=== PATIENT | female | born 1985 | race Asian ===

== ENCOUNTER 2017-05-12 00:40 | Inpatient (IN) | payer SELFPAY ==
[~2017-05-12] VITALS: Ht 160 cm; Wt 65.8 kg
[2017-05-12] MEDS ORDERED: NALBUPHINE HYDROCHLORIDE 10 MG/ML VIAL IVP PRN (01:30)
[2017-05-12] MEDS ORDERED: PROMETHAZINE 25 MG/ML VIAL IVP PRN (01:30)
[2017-05-12] MEDS ORDERED: OXYTOCIN 10 UNITS/ML VIAL IM ONE (01:30)
[2017-05-12] MEDS ORDERED: OXYTOCIN 20 UNITS/LR PREMIX 1,000 ML IV SCH (01:30)
[2017-05-12] MEDS: LACTATED RINGERS 1,000 ML IV SCH ×2 (01:51→05:01)
[2017-05-12] MEDS ORDERED: OXYTOCIN 20 UNITS/LR PREMIX 1,000 ML IV ONE ×2 (02:10→18:08)
[2017-05-12 02:27] LABS: BASOPHILS % (AUTO) 0.4 % (0.0-2.0); EOSINOPHILS # (AUTO) 0.3 K/uL (0-0.4); EOSINOPHILS % (AUTO) 3.2 % (0.0-4.0); HEMATOCRIT 38.9 % (36-48); HEMOGLOBIN 12.9 g/dL (12.0-16.0); LYMPHOCYTES # (AUTO) 1.7 K/uL (2.5-16.5); LYMPHOCYTES % (AUTO) 19.3 % (20.5-51.1); MEAN CORPUSCULAR HEMOGLOBIN 29 pg (27-31); MEAN CORPUSCULAR HGB CONC 33 g/dL (33-37); MEAN CORPUSCULAR VOLUME 88 fL (80-94); MONOCYTES # (AUTO) 0.7 K/uL (0.8-1.0); MONOCYTES % (AUTO) 8.2 % (1.7-9.3); NEUTROPHILS % (AUTO) 68.9 % (42.2-75.2); PLATELET COUNT (AUTO) 248 K/uL (140-450); RED CELL DISTRIBUTION WIDTH 13.6 % (11.6-13.7); WHITE BLOOD COUNT (AUTO) 8.7 K/uL (4.8-10.8)
[2017-05-12 03:31] VITALS: BP 122/82
[2017-05-12 03:34] LABS: HIV RAPID SCREEN NON-REACTIVE (NON REACTIV)
[2017-05-12] MEDS ORDERED: PREN-546 PO (03:35)
[2017-05-12 04:23] LABS: APPEARANCE,URINE SL CLOUDY (CLEAR); BILIRUBIN,URINE NEGATIVE (NEGATIVE); BLOOD, URINE NEGATIVE (NEGATIVE); COLOR,URINE YELLOW (YELLOW); LEUKOCYTE ESTERASE ,URINE NEGATIVE (NEGATIVE); NITRITE, URINE NEGATIVE (NEGATIVE); PROTEIN,URINE TRACE (NEGATIVE); UGLUCOSE NEGATIVE (NEGATIVE); UROBILINOGEN,URINE 0.2 EU/dL (0.2 - 1)
[2017-05-12 05:06] LABS: BACTERIA,URINE FEW /HPF (None Seen); RBC,URINE 0-5 (RARE) /HPF (0-5); WBC,URINE 0-5 (RARE) /HPF (0-5)
[2017-05-12] MEDS ORDERED: ROPIVACAINE 0.2%/NS PREMIX 250 ML EPI ONE (05:38)
--- NOTE | 2017-05-12 09:03 | NUR ---
PATIENT HAS BEEN SCREENED AND CATEGORIZED LOW NUTRITION RISK. PATIENT WILL BE SEEN WITHIN 7 DAYS OF ADMISSION. 05/18/[address]
[2017-05-12] MEDS ORDERED: OXYTOCIN 10 UNITS/ML VIAL ONE ×3 (09:27→17:19)
[2017-05-12 11:49] LABS: RAPID PLASMA REAGIN NON-REACTIVE (Non Reactiv)
[2017-05-12] MEDS ORDERED: TRIAMCINOLONE 10 MG/ML 5ML VIAL ONE (17:11)
[2017-05-12] MEDS ORDERED: LIDOCAINE 2% 100 MG/5 ML SYR IVP ONE (17:19)
[2017-05-12] MEDS ORDERED: ONDANSETRON 4 MG/2 ML VIAL ONE ×2 (17:19→18:08)
[2017-05-12] MEDS ORDERED: ePHEDrine 50 MG/ML VIAL ONE (17:19)
[2017-05-12] MEDS ORDERED: ceFAZolin 1,000 MG VIAL IVP ONE (17:30)
[2017-05-12] MEDS ORDERED: MORPHINE PRES FREE 10 MG/10 ML AMP IV ONE (17:33)
[2017-05-12] MEDS ORDERED: SODIUM BICARBONATE 8.4% PFS 50 MEQ/50 ML SYR IVP ONE (17:33)
[2017-05-12] MEDS ORDERED: LIDOCAINE/EPI MPF 2%1:200000 10 ML VIAL INJ ONE ×2 (17:34)
[2017-05-12] MEDS ORDERED: diphenhydrAMINE 50 MG/ML VIAL ONE (18:08)
[2017-05-12] MEDS ORDERED: ONDANSETRON 4 MG/2 ML VIAL IVP PRN ×2 (18:15→22:00)
[2017-05-12] MEDS ORDERED: NALOXONE 0.4 MG/ML VIAL IVP PRN ×3 (18:15)
[2017-05-12] MEDS ORDERED: diphenhydrAMINE 50 MG/ML VIAL IVP PRN (18:15)
[2017-05-12] MEDS ORDERED: NALBUPHINE 10 MG/ML AMP IVP PRN (18:15)
[2017-05-12] MEDS ORDERED: KETOROLAC 60 MG/2 ML VIAL IM PRN (18:15)
[2017-05-12] MEDS ORDERED: TRIMETHOBENZAMIDE 200 MG/2 ML SYR IM PRN (21:25)
[2017-05-12] MEDS ORDERED: TEMAZEPAM 15 MG CAP PO PRN (21:25)
[2017-05-12] MEDS ORDERED: MEASLES, MUMPS, AND RUBELLA 1 VIAL SQVAC PRN (21:25)
[2017-05-12] MEDS ORDERED: METHYLERGONOVINE 0.2 MG/ML AMP IM PRN (21:25)
[2017-05-12] MEDS ORDERED: SIMETHICONE 80 MG TAB.CHEW PO PRN (21:25)
[2017-05-12] MEDS ORDERED: oxyCODONE/APAP 5/325 MG 1 TAB TAB PO PRN (21:25)
[2017-05-12] MEDS ORDERED: HYDROcodone/APAP 5/325 MG 1 TAB TAB PO PRN (21:25)
[2017-05-13 06:32] LABS: BASOPHILS % (AUTO) 0.2 % (0.0-2.0); EOSINOPHILS # (AUTO) 0.2 K/uL (0-0.4); EOSINOPHILS % (AUTO) 1.8 % (0.0-4.0); HEMATOCRIT 32.9 % (36-48); HEMOGLOBIN 10.8 g/dL (12.0-16.0); LYMPHOCYTES % (AUTO) 7.4 % (20.5-51.1); MEAN CORPUSCULAR HEMOGLOBIN 29 pg (27-31); MEAN CORPUSCULAR HGB CONC 33 g/dL (33-37); MEAN CORPUSCULAR VOLUME 88 fL (80-94); MONOCYTES # (AUTO) 0.9 K/uL (0.8-1.0); MONOCYTES % (AUTO) 6.6 % (1.7-9.3); NEUTROPHILS # (AUTO) 11.6 K/uL (1.8-7.7); PLATELET COUNT (AUTO) 184 K/uL (140-450); RED BLOOD CELL COUNT(AUTO) 3.74 MIL/uL (4.20-5.40); RED CELL DISTRIBUTION WIDTH 13.5 % (11.6-13.7)
[2017-05-13 07:44] LABS: WHITE BLOOD COUNT (AUTO) 13.8 K/uL (4.8-10.8)
[2017-05-13] MEDS: OXYTOCIN 20 UNITS/LR PREMIX 1,000 ML IV SCH ×3 (07:49→15:59)
[2017-05-13] MEDS: DOCUSATE SOD/SENNA 50/8.6 MG 1 TAB PO SCH (20:44)
[2017-05-14] MEDS ORDERED: IBUP-2213 PO (09:11)
[2017-05-14] MEDS: IBUPROFEN 800 MG TAB PO PRN (17:59)
[2017-05-14] MEDS: DOCUSATE SOD/SENNA 50/8.6 MG 1 TAB PO SCH (21:00)
[2017-05-15] MEDS: IBUPROFEN 800 MG TAB PO PRN ×2 (00:24→06:34)
== END 2017-05-15 11:55 | disposition home or self-care (01) | DRG 766 ==
LOC: MFCC 00:40
PROVIDERS: ADMIT Obstetrics & Gynecology; ATTEND Obstetrics & Gynecology
PROC: 10D00Z1 Extraction of Products of Conception, Low, Open Approach (ICD-10-PCS; principal; 2017-05-12 17:15)
PROC: 3E0234Z Introduction of Serum, Toxoid and Vaccine into Muscle, Percutaneous Approach (ICD-10-PCS; 2017-05-15)
DX: O32.4XX0 Maternal care for high head at term, not applicable or unspecified (principal); Z37.0 Single live birth; O62.1 Secondary uterine inertia; O77.0 Labor and delivery complicated by meconium in amniotic fluid; O69.1XX0 Labor and delivery complicated by cord around neck, with compression, not applicable or unspecified; O09.293 Supervision of pregnancy with other poor reproductive or obstetric history, third trimester; Z3A.39 39 weeks gestation of pregnancy; Z82.49 Family history of ischemic heart disease and other diseases of the circulatory system; Z23 Encounter for immunization
CPT/HCPCS: 36415; 51702; 81001; 85025; 86592; 86886; 86900; 86901; 90707; J0690; J1200; J2001; J2270; J2405; J2590; J2795; J3301; J7060; J7120